=== PATIENT | female | born 1980 | race Caucasian/White ===

== ENCOUNTER 2020-12-16 10:08 | Outpatient (CLI) | payer OTHER, SELFPAY | END 2020-12-16 10:09 | disposition home or self-care (01) | LOC: ANHSURGERY 10:12 | PROVIDERS: PCP Family Medicine; Visit Provider Obstetrics & Gynecology | DX: Z01.812 Encounter for preprocedural laboratory examination (principal); D21.9 Benign neoplasm of connective and other soft tissue, unspecified | CPT/HCPCS: 36415; 86850; 86900; 86901 ==

== ENCOUNTER 2020-12-17 15:02 | Inpatient (IN) | payer OTHER, SELFPAY ==
[2020-12-10 11:05] VITALS: BMI 38.7
[2020-12-17] VITALS (14 sets, daily range): BP systolic 131–160; BP diastolic 71–109; PULSE 80–100; RESP 14–24; TEMP 36.6–37.2; O2SAT 94–100
--- NOTE | 2020-12-17 09:22 | PM.IMHP ---
H&P: HPI History of Present Illness Date/Time: 12/17/20 09:22 40 y/o nullip with a long history of heavy cycles with fibroids. Patient reports bleeding worsening over the years despite hormone use. Patient reports some increased pain and pressure with cycles. Chief Complaint: heavy cycles Review of Systems Review of Systems: fatigue PMFSH Past Medical History Medical History Anxiety Fibroids Hx of migraines Menorrhagia Surgical History Surgical History History of cholecystectomy Social History Social History Years smoked: 10 Smoking status: Former smoker Tobacco type: cigarettes Smoking end date: 03/19/18 Alcohol intake: never Substance use: never Substance use type: does not use Living arrangements: with family Spiritual care concerns: No Meds Home Medications and Allergies Home Medications Medication Instructions Recorded Confirmed Type drospirenone-ethinyl estradiol 1 tablet PO DAILY 12/10/20 12/17/20 History sertraline 100 mg PO DAILY 12/10/20 12/17/20 History Allergies Allergy/AdvReac Type Severity Reaction Status Date / Time No Known Allergies Allergy Verified 12/17/20 10:06 Vital Signs BP: 130/80 Pulse: 88, Exam Const: General: healthy appearing and well developed Resp: Auscultation: clear to auscultation bilaterally Cardio: Rate: regular rate Rhythm: regular rhythm GI: GI Palp: Yes Soft to palpation Auscultation: normal bowel sounds : Bimanual exam- vagina & uterus: normal palpation and enlarged Bimanual Exam- Adnexa, other: normal adnexae Assessment and Plan Assessment and plan (1) History of cholecystectomy: Code(s): Z90.49 - Acquired absence of other specified parts of digestive tract Status: Acute (2) Fibroids: Code(s): D21.9 - Benign neoplasm of connective and other soft tissue, unspecified Status: Acute Assessment and Plan: scheduled for a Total abdominal hysterectomy with a unilateral oopherectomy (3) Menorrhagia: Code(s): N92.0 - Excessive and frequent menstruation with regular cycle Status: Acute
--- NOTE | 2020-12-17 10:28 | WPDANESEPPF ---
Anes - Initial Pre Proc Eval Procedure: Operation Date: 12/17/20 12:00 Proposed Procedures p Total Abdominal Hysterectomy - Bi Dorado MD Date/Time: 12/17/20 10:28 Surgeon: Bi Dorado MD Pre Op Diagnosis: Fibroids Patient Data Age: 40 Gender: F Height: 1.68 m Weight: 110.4 kg Allergies Allergy/AdvReac Type Severity Reaction Status Date / Time No Known Allergies Allergy Verified 12/17/20 10:06 Home Medications Medication Instructions Recorded Confirmed Type drospirenone-ethinyl estradiol 1 tablet PO DAILY 12/10/20 12/17/20 History sertraline 100 mg PO DAILY 12/10/20 12/17/20 History Patient hx anesthesia problems: post op nausea/vomiting Family hx anesthesia problems: none Results Review: All pre-operative results and documents have been reviewed as part of the pre-operative evaluation. [facility] Past Medical History Medical History Anxiety Fibroids Hx of migraines Menorrhagia Surgical History Surgical History History of cholecystectomy Social History Social History Years smoked: 10 Smoking status: Former smoker Tobacco type: cigarettes Smoking end date: 03/19/18 Alcohol intake: never Substance use: never Substance use type: does not use Living arrangements: with family Spiritual care concerns: No Anes - Eval Final PreProcedure Day of Procedure 12/17/20 10:28 Patient weight: obese Heart: regular rate and rhythm Lungs: clear to auscultation Airway: Mallampati scale class II Neurological: alert and oriented Last oral intake: >/= 8 hours ASA classification: II Emergent: no Anesthetic plan: proceed Anesthesia type and monitoring: general ETT and standard monitoring Results Review: All pre-operative results and documents have been reviewed as part of the pre-operative evaluation. Informed Consent: The patient's anesthetic plan and its attendant risks and benefits were discussed with the patient/family/POA. Questions were solicited and answers provided to the satisfaction of the patient/family/POA.
[2020-12-17] MEDS: LACTATED RINGERS 1,000 ML 30 ML IV CONT ×2 (10:30→15:09)
[2020-12-17] MEDS: ACETAMINOPHEN 500 MG TABLET 1000 MG PO (10:31)
[2020-12-17] MEDS: KETOROLAC 15 MG/ML VIAL (*BKC) IV PUSH (10:31)
[2020-12-17] MEDS: SCOPOLAMINE 1.5 MG PATCH TRANSDERM (10:40)
--- NOTE | 2020-12-17 12:08 | WPDHPUPDATE1 ---
History and Physical Update Update Date/Time: 12/17/20 12:08 History and Physical has been reviewed, including an updated exam of the patient. There are NO changes in the patient's condition. Risks, benefits, and alternatives have been discussed and questions answered. Patient agrees to proceed with procedure.
[2020-12-17] MEDS: ceFAZolin 2 GM/D5W 50 ML 2 GM/50 ML BAG IVPB (12:11)
[2020-12-17] MEDS: ONDANSETRON INJ 4 MG/2 ML VIAL IV PUSH (15:23)
--- NOTE | 2020-12-17 15:27 | W.PM.PROC2 ---
Procedure Note - Detailed Date of Procedure 12/19/20 Pre-op Diagnosis Fibroids Post-op Diagnosis same Procedure Performed RAMSEY with bilateral salpingectomy right oopherectomy Surgeon Bi Dorado MD Anesthesia general Findings large fibroid uterus Description of Procedure The patient was prepped and draped in the usual sterile fashion for abdominal procedure. An incision was made into the abdomen down to the subcutaneous tissue, muscular fascia, and peritoneum. Once inside the abdominal cavity a self-retaining retractor was placed to expose the pelvic cavity and the bowel packed away with 3 lap sponges. The uterus was then identified and grasped at the fundus with a single-tooth tenaculum with upward traction. The round ligaments on either side were identified and individually dissected and ligated with 0 Vicryl suture and divided. This allowed us to then create a bladder flap by both blunt and sharp dissection. The fallopian tube and ovarian ligament were isolated through the broad ligament from the uterine body and ligated with LigaSure device and divide as well. We then skeletonized the uterine vessels on either side and carefully dissected the bladder flap anteriorly. Posteriorly, the peritoneum was dissected down for the uterosacral ligament pain. The LigaSure was then placed at each isthmic portion of the cervical body junction where the uterine arteries joined the uterus. These were clamped and ligated and divided with the LigaSure device. The remainder of the uterus was then removed by clamping ligation technique using the LigaSure device. For better exposure secondary to the enlarged uterus, the uterus was transected at the cervix. The uterosacral ligaments were then clamped, transected, and suture ligated with 0 Vicryl suture. The cervix was then removed. The vaginal cuff was closed in the 0 Vicryl suture in a running locked fashion. Hemostasis was then inspected and secured throughout the entire area. The abdomen was copiously irrigated and the pedicles were reinspected for hemostasis. Right ovary was transected at uterine ovarian ligament and the left ovary were left in situ and descended to the sidewalls. The lap sponges were then removed and the self retraining retractor was removed. The sponge count was correct x2 at this time and the Red catheter noted clear urine. The fascia was then closed with 0 PDS in a running continuous fashion. The subcutaneous tissue was irrigated and closed with 3-0 plain gut. The skin was closed with 4-0 Vicryl suture. Hemostasis was assured throughout the entire layers and the incision was covered with Dermabond glue. The patient tolerated the procedure well and was taken to recovery room in stable condition. Estimated Blood Loss -850.0
[2020-12-17] MEDS: fentaNYL CITRATE INJ (*CRX) 100 MCG/2 ML VIAL 25 MCG IV PUSH ×8 (15:42→16:32)
[2020-12-17] MEDS: DEXTROSE 5%/LACTATED RINGERS 1,000 ML 125 ML IV CONT (18:28)
[2020-12-17] MEDS: MORPHINE SULFATE (*CRX) 4 MG/ML INJ IV PUSH ×2 (18:30→22:38)
[2020-12-17] MEDS: KETOROLAC 30 MG/ML VIAL (*BKC) IV PUSH (19:33)
[2020-12-18] MEDS: KETOROLAC 30 MG/ML VIAL (*BKC) IV PUSH ×2 (01:27→08:16)
[2020-12-18] MEDS: MORPHINE SULFATE (*CRX) 4 MG/ML INJ IV PUSH (02:49)
[2020-12-18 03:30] VITALS: BP 133/82; PULSE 96; RESP 16; TEMP 37.2; O2SAT 95
[2020-12-18] MEDS: DEXTROSE 5%/LACTATED RINGERS 1,000 ML 125 ML IV CONT (03:37)
[2020-12-18 05:28] LABS: Basophils Percent Auto 0.1 % (0.2-1.2); Hematocrit 37.8 % (37.0-47.0); Hemoglobin 12.5 g/dL (12.0-15.0); Immature Granulocyte Absolute 0.07 K/mm3 (0.00-0.031); Immature Granulocyte Percent A 0.6 % (0-0.5); Lymphocytes Absolute Auto 1.33 K/mm3 (0.9-3.2); Lymphocytes Percent Auto 11.4 % (18.3-44.2); Mean Corpuscular HGB Conc 33.1 g/dl (32-36); Mean Corpuscular Hemoglobin 30.3 pg (26-34); Mean Corpuscular Volume 91.7 fl (80-100); Mean Platelet Volume 9.9 fl (7.4-10.4); Monocytes Absolute Auto 0.9 K/mm3 (0.1-0.6); Neutrophils Absolute Auto 9.4 K/mm3 (1.3-6.7); Neutrophils Percent Auto 79.9 % (45.5-73.1); Platelet Count Result 192 k/mm3 (150-375); Red Blood Count 4.12 M/mm3 (4.2-5.4); Red Cell Distribution Width 12.5 % (11.5-14.5); White Blood Count 11.7 K/mm3 (4.5-10.0)
[2020-12-18 05:33] LABS: Anion Gap 9 mmol/L (8-16); Blood Urea Nitrogen 11 mg/dL (7-17); Calcium 8.4 mg/dL (8.4-10.2); Carbon Dioxide 23 mmol/L (22-30); Chloride 104 mmol/L (98-107); Estimated CRCL calculation 92 ml/min; Estimated Glomerular Filt Rate > 60; Glucose 140 mg/dL (65-110); Potassium 3.9 mmol/L (3.4-5.0); Sodium 136 mmol/L (137-145)
[2020-12-18 08:00] VITALS: BP 145/90; PULSE 94; RESP 18; TEMP 36.9; O2SAT 97
--- NOTE | 2020-12-18 08:00 | PC.NURSE ---
PT introductions made and plan of care discussed per post op RAMSEY, pain management, daily care activities. PT sole recipient of such instructions this shift per one to one discussion and demonstration. PT shows no barriers to learning at this time. PT verbalized understanding of such instructions and care.
[2020-12-18] MEDS: SIMETHICONE 80 MG TAB.CHEW PO ×5 (08:17→21:11)
[2020-12-18] MEDS: SERTRALINE HCL 50 MG TABLET 100 MG PO (08:17)
[2020-12-18] MEDS: HYDROcodone/acetaminophen (*CRX) 5-325 MG TABLET 1 TAB PO ×2 (08:18→21:11)
--- NOTE | 2020-12-18 10:41 | PM.GYNPNOP ---
[employer] - A/P Assessment and plan (1) Fibroids: Code(s): D21.9 - Benign neoplasm of connective and other soft tissue, unspecified Status: Acute Assessment and Plan: s/p hysterectomy continue with post op care. (2) Menorrhagia: Code(s): N92.0 - Excessive and frequent menstruation with regular cycle Status: Acute Postoperative Procedures: Procedures Operation Date: 12/17/20 12:00 Actual Procedure Side Surgeon p Total Abdominal Hysterectomy Not Applicable Bi Dorado MD Time Spent With Patient Time: Total time spent is greater than 50% in coordination of care (as documented) at patient's floor/unit and/or counseling patient: Time with patient: 15 - 25 minutes [employer]- PN:Subj Post-Op Subjective Date/time seen: 12/18/20 10:41 Doing well pain controlled has a history of hypertension but was taken off meds. Exam Narrative: incision d/d/i [employer] SAL[employer] - PN: Obj Data Vital Signs Vital Signs: Vital Signs - 24 hr 12/17/20 11:30 12/17/20 15:09 12/17/20 15:15 Temperature 36.9 C 36.7 C Pulse Rate 80 84 84 Respiratory Rate 18 18 17 Blood Pressure 147/85 H 138/80 137/71 Pulse Oximetry 99 98 100 12/17/20 15:30 12/17/20 15:45 12/17/20 16:00 Temperature Pulse Rate 86 88 87 Respiratory Rate 20 24 H 20 Blood Pressure 138/76 155/80 H 158/84 H Pulse Oximetry 100 99 97 12/17/20 16:15 12/17/20 16:30 12/17/20 16:45 Temperature Pulse Rate 91 98 100 Respiratory Rate 20 20 20 Blood Pressure 155/88 H 147/79 H 144/80 H Pulse Oximetry 96 94 94 12/17/20 17:00 12/17/20 17:15 12/17/20 17:28 Temperature 36.6 C Pulse Rate 94 96 97 Respiratory Rate 20 20 14 Blood Pressure 152/83 H 151/77 H 131/88 Pulse Oximetry 95 96 12/17/20 20:00 12/17/20 23:00 12/18/20 03:30 Temperature 36.9 C 37.2 C 37.2 C Pulse Rate 86 96 96 Respiratory Rate 16 16 16 Blood Pressure 160/109 H 156/99 H 133/82 Pulse Oximetry 99 98 95 Intake/Output Intake/Output: Intake & Output 12/15/20 12/16/20 12/17/20 12/18/20 23:59 23:59 23:59 23:59 Intake Total 1050 1200 Output Total 825 150 Balance 225 1050 Meds/Results Medications: Active Medications Generic Name Dose Route Start Last Admin Trade Name Freq PRN Reason Stop Dose Admin Hydrocodone Bitart/Acetaminophen 1 tab 12/17/20 15:02 Hydrocodone/Acetaminophen (*Crx) 10-325 Mg Tablet PO Q3H PRN Pain Rated 6 or Greater Hydrocodone Bitart/Acetaminophen 1 tab 12/17/20 15:02 12/18/20 08:18 Hydrocodone/Acetaminophen (*Crx) 5-325 Mg Tablet PO 1 tab Q3H PRN Administration Pain Rated 5 or Less Lactated Ringer's 1,000 mls @ 30 mls/hr 12/17/20 09:10 12/17/20 15:09 Lr - Lactated Ringers Iv IV CONT Infused .Q24H ANDREI Infusion Lactated Ringer's 1,000 mls @ 30 mls/hr 12/17/20 10:30 12/17/20 17:15 Lr - Lactated Ringers Iv IV CONT Infused .Q24H ANDREI Infusion Dextrose/Lactated Ringer's 1,000 mls @ 125 mls/hr 12/17/20 15:05 12/18/20 03:37 Dextrose 5%/Lactated Ringers IV CONT 125 mls/hr .Q8H ANDREI Administration Ibuprofen 600 mg 12/17/20 15:02 Ibuprofen 600 Mg Tablet PO Q6H PRN Cramping Ketorolac Tromethamine 30 mg 12/17/20 15:02 12/18/20 08:16 Ketorolac 30 Mg/Ml Vial (*Bkc) IV PUSH 12/22/20 15:01 30 mg Q6H PRN Administration Pain Rated 4-6 Morphine Sulfate 4 mg 12/17/20 15:02 12/18/20 02:49 Morphine Sulfate (*Crx) 4 Mg/Ml Inj IV PUSH 4 mg Q4H PRN Administration Pain Rated 7-10 Naloxone HCl 0.1 mg 12/17/20 15:02 Naloxone Hcl 0.4 Mg/Ml Vial IV PUSH Q2M PRN Respiratory rate less than 10 Ondansetron HCl 4 mg 12/17/20 15:02 Ondansetron Inj 4 Mg/2 Ml Vial IV PUSH Q6H PRN Nausea Senna/Docusate Sodium 2 tab 12/17/20 21:00 12/17/20 21:31 Senna/Docusate Sodium Tablet PO Not Given HS ANDREI Sertraline HCl 100 mg 12/18/20 09:00 12/18/20 08:17 Sertraline Hcl 50 Mg Tablet PO 100 mg DAILY ANDREI Administrati
[2020-12-18] MEDS: HYDROcodone/acetaminophen (*CRX) 10-325 MG TABLET 1 TAB PO ×3 (11:26→18:01)
[2020-12-18 15:00] VITALS: BP 121/63; PULSE 89; RESP 18; TEMP 36.9; O2SAT 97
[2020-12-18] MEDS: IBUPROFEN 600 MG TABLET PO ×2 (15:17→21:11)
[2020-12-18 20:00] VITALS: BP 106/65; PULSE 77; RESP 16; TEMP 36.9; O2SAT 98
[2020-12-18] MEDS: SENNA/DOCUSATE SODIUM TABLET 2 TAB PO (21:10)
[2020-12-19] MEDS: SIMETHICONE 80 MG TAB.CHEW PO ×3 (00:17→11:40)
[2020-12-19] MEDS: HYDROcodone/acetaminophen (*CRX) 5-325 MG TABLET 1 TAB PO ×3 (00:17→11:40)
[2020-12-19] MEDS: IBUPROFEN 600 MG TABLET PO ×2 (03:19→11:39)
--- NOTE | 2020-12-19 07:00 | PC.NURSE ---
PT introductions made and plan of care discussed per post op RAMSEY, pain management, daily care activities and pending discharge. PT sole recipient of such instructions this shift per one to one discussion and demonstration. PT shows no barriers to learning at this time. PT verbalized understanding of such instructions and care.
--- NOTE | 2020-12-19 09:00 | PC.NURSE ---
Dr Dorado stated that pt wanted to nap this morning and to be left alone prior to discharge.
[2020-12-19] MEDS: SERTRALINE HCL 50 MG TABLET 100 MG PO (11:38)
[2020-12-19 11:45] VITALS: BP 150/100; PULSE 95; RESP 18; TEMP 36.8; O2SAT 97
--- NOTE | 2020-12-19 11:45 | PC.NURSE ---
Pt received discharge instructions per protocol and verbalized understanding of such instructions.
--- NOTE | 2020-12-19 12:12 | PC.NURSE ---
PT discharged to home via wheelchair accompanied by her father to waiting car. Follow up appt confirmed.
--- NOTE | 2021-01-05 10:09 | PM.DS ---
DS: Admitting Diagnosis Discharge Date 12/19/20 Admitting Diagnosis fibroids DS: Discharge Diagnosis Discharge Diagnosis (1) Menorrhagia: Code(s): N92.0 - Excessive and frequent menstruation with regular cycle Status: Acute (2) Fibroids: Code(s): D21.9 - Benign neoplasm of connective and other soft tissue, unspecified Status: Acute Assessment and Plan: s/p RAMSEY DS: Summary Hospital Course Reason for hospitalization: fibroids Hospital Course: Patient admitted for a abdominal hysterectomy please see operative note. Patient hospital course uncomplicated. D/c home on day 2 post op. Patient sent with norco 5/325 one every 6 hours as needed., folllow up in 1 week. Time spent discussing smoking cessation with patient: more than 10 minutes Status at Discharge Functional status at discharge: independent ambulation Overall status at discharge: patient is progressing back to baseline Time Spent with Patient Time attestation: Total time spent providing and/or coordinating discharge services: Exam Narrative: inc c/d/i DS: Data Data Completed and Pending Completed studies during hospitalization: Pending at discharge 12/17/20 14:40 Surgical [PTH] Routine Discharge Plan Discharge Attending physician on discharge: Bi Dorado Discharging Clinician: Bi Dorado Patient Disposition: Home, Self-Care Activity: may shower, may drive after 2 weeks, follow weight bearing status and pelvic rest Diet: regular Patient Instructions: Antibiotic Form, Hysterectomy (DC), Pain Management After Surgery (DC) Stand Alone Forms: General Discharge Information Follow-up/Referrals: Bi Dorado MD [Physician] - Discharge Medications: New hydrocodone-acetaminophen 5-325 mg Tablet 1 tablet PO Q3H PRN (Reason: Pain Rated 5 Or Less) Qty: 30 RF: 0 ibuprofen 600 mg Tablet 600 mg PO Q6H PRN (Reason: Cramping) Qty: 30 RF: 0 Continued sertraline 100 mg Tablet 100 mg PO DAILY RF: 0 Discontinued drospirenone-ethinyl estradiol 3-0.03 mg tablet 1 tablet PO DAILY RF: 0 Date of admission: 12/17/20 15:02 Primary Care Provider: Carleen,Eli Álvarez Admitting Provider: Bi Dorado Attending physician on admission: Bi Dorado Condition: Stable
== END 2020-12-19 12:12 | disposition home or self-care (01) | DRG 743 ==
LOC: ANHOB2 17:22
PROVIDERS: Admitting Provider Obstetrics & Gynecology; PCP Family Medicine; Visit Provider Obstetrics & Gynecology
PROC: 0UT94ZZ Resection of Uterus, Percutaneous Endoscopic Approach (ICD-10-PCS; principal; 2020-12-17 12:00)
DX: N92.0 Excessive and frequent menstruation with regular cycle (principal); D25.9 Leiomyoma of uterus, unspecified; Z87.891 Personal history of nicotine dependence; Z90.49 Acquired absence of other specified parts of digestive tract
CPT/HCPCS: 36415; 80048; 85025; 86850; 86900; 86901; 88307; A9270; J0360; J0690; J1100; J1170; J1885; J2250; J2270; J2405; J2704; J2710; J3010; J7120; J7121; Q9968

== ENCOUNTER 2022-06-02 11:18 | Outpatient (CLI) | payer OTHER, SELFPAY ==
[2022-06-02 12:10] LABS: D Dimer 0.55 ug/mL (<0.48)
== END 2022-06-02 11:19 | disposition home or self-care (01) ==
LOC: ANHLAB 11:24
PROVIDERS: PCP Family Medicine; Visit Provider Family Medicine
DX: M79.661 Pain in right lower leg (principal)
CPT/HCPCS: 36415; 85380

== ENCOUNTER 2022-06-07 15:15 | Outpatient (CLI) | payer OTHER, SELFPAY ==
--- NOTE | ~2022-06-07 | US_ITS ---
EXAMINATION: US venous doppler LE RT DATE: 06/07/2022 15:57 INDICATION: Right lower limb pain TECHNIQUE: Grayscale ultrasound images without and with compression and Doppler ultrasound images of the right lower extremity veins were obtained. COMPARISON: None. FINDINGS: The visualized portions of right common femoral vein, profunda (deep) femoral vein, femoral vein, pop liteal vein, peroneal trunk, posterior tibial veins, peroneal veins, gastrocnemius vein and greater s aphenous vein outflow are patent. IMPRESSION: 1. No deep venous thrombosis in the right lower limb. Reviewed, dictated and finalized at location A.
== END 2022-06-07 15:16 | disposition home or self-care (01) ==
PROVIDERS: PCP Family Medicine; Visit Provider Family Medicine
DX: M79.661 Pain in right lower leg (principal)
CPT/HCPCS: 93971

== ENCOUNTER 2022-09-25 15:27 | Outpatient (CLI) | payer OTHER, SELFPAY ==
--- NOTE | ~2022-09-25 | US_ITS ---
EXAMINATION: US pelvic complete w TV DATE: 09/25/2022 16:27 INDICATION: Right abdominal pain. TECHNIQUE: Multiple transabdominal and transvaginal sonographic images of the pelvis were obtained. COMPARISON: None. FINDINGS: TRANSABDOMINAL ULTRASOUND: The uterus is absent. There is no free fluid in the pelvis. TRANSVAGINAL ULTRASOUND: The right ovary measures 2.1 x 2.6 x 1.6 cm. The left ovary measures 3.7 x 3.4 x 4.6 cm. There is nor mal vascular flow in the ovaries. IMPRESSION: 1. Normal ovaries. 2. Absent uterus. Reviewed, dictated and finalized at location E.
== END 2022-09-25 15:28 | disposition home or self-care (01) ==
PROVIDERS: PCP Family Medicine
DX: R10.9 Unspecified abdominal pain (principal)
CPT/HCPCS: 76830; 76856

== ENCOUNTER 2022-12-18 07:13 | Outpatient (CLI) | payer OTHER, SELFPAY ==
[2022-12-18 08:22] LABS: Alanine Aminotransferase 24 U/L (6-35); Albumin Level 4.7 g/dL (3.5-5.1); Alkaline Phosphatase 66 U/L (38-126); Anion Gap 10 mmol/L (8-16); Aspartate Amino Transferase 29 U/L (14-36); Bilirubin,Total 0.9 mg/dL (0.2-1.3); Blood Urea Nitrogen 14 mg/dL (7-17); Calcium 9.3 mg/dL (8.4-10.2); Carbon Dioxide 26 mmol/L (22-30); Chloride 101 mmol/L (98-107); Cholesterol 232 mg/dL (0-200); Estimated Glomerular Filt Rate > 60; Glucose 92 mg/dL (65-110); HDL Direct 68 mg/dL; Potassium 3.9 mmol/L (3.4-5.0); Sodium 137 mmol/L (137-145); Triglycerides 162 mg/dL (<150)
[2022-12-18 08:33] LABS: LDL Cholesterol Direct 119 mg/dL
[2022-12-18 09:12] LABS: Free T4 Free Thyroxine 1.02 ng/mL (0.78-2.19)
== END 2022-12-18 07:14 | disposition home or self-care (01) ==
PROVIDERS: PCP Family Medicine; Visit Provider Family Medicine
DX: I10 Essential (primary) hypertension (principal)
CPT/HCPCS: 36415; 80053; 80061; 84439; 84443